=== PATIENT | male | born 1985 | race Asian ===

== ENCOUNTER 2020-03-12 19:06 | Emergency (ER) | payer MEDICAID ==
[~2020-03-12] VITALS: Ht 167.6 cm; Wt 81.6 kg
--- NOTE | 2020-03-12 19:18 | Emergency Room Report ---
History of Present Illness General Chief Complaint: Behavioral Complaint Source: Patient Present Illness HPI Is a 34-year-old male brought in by EMS for increased anxiety. Patient reports of increased generalized anxiety. He will not state exactly what this is from.Patient states that he was recently released from [facility] after 10-month stay. He reported recently being started on Risperdal but had previously been taking Seroquel. He states that he has been having difficulty sleeping. Allergies: Coded Allergies: No Known Allergies (Unverified , 03/12/20) COVID-19 Screening COVID-19 risk:Contact w/high r: No Has patient experienced lira: No COVID-19 Testing performed TOOLING SPECIALIST: No Patient History Past Medical History: see triage record Reviewed Nursing Documentation: PMH: Agreed; PSxH: Agreed Nursing Documentation-PMH Past Medical History: No History, Except For History Of Psychiatric Problem: Yes - schizophrenia Review of Systems All Other Systems: negative except mentioned in HPI Physical Exam Vital Signs Date Time Temp Pulse Resp B/P (MAP) Pulse Ox O2 Delivery O2 Flow Rate FiO2 03/12/20 19:05 99.0 89 160/90 (113) 98 Room Air Sp02 EP Interpretation: reviewed, normal General Appearance: alert/responsive, no apparent distress, GCS 15, non-toxic Head: atraumatic Eyes: PERRL, lids + conjunctiva normal ENT: hearing intact, no angioedema Neck: supple/symm/no masses, no meningismus Respiratory: effort normal, no wheezing, chest symmetrical Cardiovascular: regular rate, rhythm, no edema Cardiovascular #2: 2+ carotid (R), 2+ carotid (L), 2+ dorsalis pedis (R), 2+ dorsalis pedis (L) Gastrointestinal: non-tender, no mass, non-distended, no rebound/guarding, normal bowel sounds Musculoskeletal: gait & station normal, normal ROM, strength & tone normal, non-tender Neurologic: oriented x3, sensory intact, normal speech Skin: no rash, well hydrated Lymphatic: normal inspection Medical Decision Making ER Course Patient presented for anxiety. Differential diagnosis include was not limited to medication withdrawal, substance abuse, alcohol withdrawal, akathisia among others. Because of complexity of patient's case laboratory tests were ordered. Patient was noted to have some increased anxiety. Does not appear to have any evidence of acute distress. Patient states that he had previously been on Seroquel patient was given Ativan due to some agitation. Last Vital Signs Date Time Temp Pulse Resp B/P (MAP) Pulse Ox O2 Delivery O2 Flow Rate FiO2 03/12/20 19:05 99.0 89 160/90 (113) 98 Room Air Mk Hobbs MD Mar 12, 2020 19:18
[2020-03-12 19:20] VITALS: BP 160/90
--- NOTE | 2020-03-12 19:20 | NUR ---
ED Nurse Note: Patient brought into ED by [id number] for increased anxiety. Patient states he has been off his seroquel due to [facility] being in [facility] past 10 [facility]. Patient states he was being given risperdal in [facility] and he does not like the side effects of that medication. Patient wants to be placed back on seroquel. He cannot explain what is making him anxious, denies drug or alcohol use today. Patient is aaox4, breathing is normal and unlabored. He appears mildly anxious and restless at this time. Patient placed in bed with all safety measures met. Will continue to closely monitor.
--- NOTE | 2020-03-12 19:24 | NUR ---
ED Nurse Note: Blood drawn by RN and urine sample obtained; sent to lab.
[2020-03-12] MEDS ORDERED: LORazepam Inj 2mg/ml 1ml ONE (19:37)
[2020-03-12] MEDS ORDERED: LORazepam Inj 2mg/ml 1ml IV ONE (19:45)
[2020-03-12 20:17] LABS: ANION GAP 11 mmol/L (5-15); BLOOD UREA NITROGEN 13 mg/dL (7-18); CALCIUM 8.8 MG/DL (8.5-10.1); CARBON DIOXIDE 27 MMOL/L (21-32); CHLORIDE 104 MMOL/L (98-107); CREATININE 0.9 MG/DL (0.55-1.30); POTASSIUM 3.7 MMOL/L (3.5-5.1); SODIUM 142 MMOL/L (136-145)
[2020-03-12 20:21] LABS: BASOPHILS % (AUTO) 2.1 % (0.0-2.0); EOSINOPHILS % (AUTO) 5.5 % (0.0-3.0); HEMATOCRIT 43.5 % (42.0-52.0); HEMOGLOBIN 14.7 G/DL (14.2-18.0); LYMPHOCYTES % (AUTO) 40.3 % (20.0-45.0); MEAN CORPUSCULAR VOLUME 87 FL (80-99); MONOCYTES % (AUTO) 8.5 % (1.0-10.0); NEUTROPHILS % (AUTO) 43.7 % (45.0-75.0); PLATELET COUNT 297 K/UL (150-450); RED BLOOD COUNT 5.02 M/UL (4.70-6.10); RED CELL DISTRIBUTION WIDTH 12.3 % (11.6-14.8); WHITE BLOOD COUNT 7.9 K/UL (4.8-10.8)
[2020-03-12 20:22] LABS: ALANINE AMINOTRANSFERASE 53 U/L (12-78); ALBUMIN 4.1 G/DL (3.4-5.0); ALBUMIN/GLOBULIN RATIO 1.1 (1.0-2.7); ALKALINE PHOSPHATASE 68 U/L (46-116); ASPARTATE AMINO TRANSFERASE 29 U/L (15-37); BILIRUBIN,TOTAL 0.4 MG/DL (0.2-1.0)
--- NOTE | 2020-03-12 20:30 | NUR ---
ED Nurse Note: Patient is more calm and relaxed at this time. Patient is willing to be discharge, he is requesting prescription for seroquel. ERMD aware of patient's request. Patient agreed with plan to follow up with PCP/psychiatrist.
[2020-03-12] MEDS ORDERED: SEROQUEL100 MG ORAL (20:59)
[2020-03-12 21:10] VITALS: BP 142/90
--- NOTE | 2020-03-12 21:10 | NUR ---
ER DISCHARGE NOTE: Patient is cleared to be discharged per ERMD, pt is aox4, on room air, with stable vital signs. pt was given dc and prescription instructions, pt was able to verbalize understanding, pt id band removed. pt is able to ambulate with steady gait. pt took all belongings.
== END 2020-03-12 21:10 | disposition home or self-care (01) ==
LOC: EDBD 19:06 → EMR 19:36
DX: F41.9 Anxiety disorder, unspecified (principal); F20.9 Schizophrenia, unspecified
CPT/HCPCS: 36415; 80053; 80307; 85025; 96374; G0480; G0481; U0002; Z7502; 99284